=== PATIENT | male | born 1935 ===

== ENCOUNTER 2020-12-17 06:29 | Day surgery (SDC) | payer OTHER ==
[~2020-12-17 06:29] MED LIST: CENTRUM ADULTS1 EACH PO; FOLIC A PO; LISINO PO; VITAMIN C PO
== END 2020-12-17 14:30 | disposition home or self-care (01) ==
LOC: CIR.AMB 06:29
PROVIDERS: ATTEND Urology
DX: C67.8 Malignant neoplasm of overlapping sites of bladder (principal); D29.1 Benign neoplasm of prostate; Z20.822 Contact with and (suspected) exposure to COVID-19

== ENCOUNTER 2023-01-16 05:30 | Day surgery (SDC) | payer OTHER ==
[~2023-01-16] VITALS: Ht 175.3 cm; Wt 74.8 kg
[~2023-01-16 05:30] MED LIST changes: +VITAMIN B122500 MCG PO
== END 2023-01-16 13:40 | disposition home or self-care (01) ==
LOC: CIR.AMB 05:30
PROVIDERS: ATTEND Urology
DX: C67.9 Malignant neoplasm of bladder, unspecified (principal); N30.20 Other chronic cystitis without hematuria; D68.8 Other specified coagulation defects; D65 Disseminated intravascular coagulation [defibrination syndrome]; I10 Essential (primary) hypertension; Z20.822 Contact with and (suspected) exposure to COVID-19